=== PATIENT | male | born 1975 | race African-American/Black ===

== ENCOUNTER 2017-10-28 11:59 | Emergency (ER) | payer MEDICAID ==
[~2017-10-28] VITALS: Ht 182.9 cm; Wt 69.0 kg
[~2017-10-28 11:59] MED LIST: CEPH500C5 PO; NYST30CR2 TP
[2017-10-28 12:08] VITALS: BP 123/91
[2017-10-28] MEDS ORDERED: CLOT12CR TOP (12:23)
[2017-10-28] MEDS ORDERED: MYCOL15CR TOP (12:23)
[2017-10-28] MEDS ORDERED: CEPH-571 PO (12:23)
== END 2017-10-28 12:52 | disposition home or self-care (01) ==
LOC: ER 12:01
DX: B35.1 Tinea unguium (principal); L03.032 Cellulitis of left toe; L03.031 Cellulitis of right toe; F12.90 Cannabis use, unspecified, uncomplicated; Z79.2 Long term (current) use of antibiotics
CPT/HCPCS: 99283

== ENCOUNTER 2017-11-10 08:58 | Emergency (ER) | payer MEDICAID ==
[~2017-11-10] VITALS: Ht 182.9 cm; Wt 74.6 kg
[~2017-11-10 08:58] MED LIST changes: +CEPH-571 PO; +CLOT12CR TOP; +MYCOL15CR TOP
[2017-11-10] MEDS ORDERED: fluconazole 150mg tablet PO ONE (09:40)
[2017-11-10] MEDS ORDERED: fluconazole 100mg tablet PO ONE (09:40)
[2017-11-10] MEDS ORDERED: TOLN108P2 TP (09:47)
[2017-11-10] MEDS ORDERED: FLUC200T PO (09:47)
== END 2017-11-10 10:28 | disposition home or self-care (01) ==
LOC: ER 08:59
DX: M79.671 Pain in right foot (principal); M79.672 Pain in left foot; B35.3 Tinea pedis; F12.90 Cannabis use, unspecified, uncomplicated; I10 Essential (primary) hypertension; Z79.899 Other long term (current) drug therapy
CPT/HCPCS: 73630; 99284

== ENCOUNTER 2017-12-03 14:56 | Emergency (ER) | payer MEDICAID ==
[~2017-12-03] VITALS: Ht 182.9 cm; Wt 53.9 kg
[~2017-12-03 14:56] MED LIST changes: -CEPH-571 PO; -CEPH500C5 PO; -CLOT12CR TOP; +FLUC200T PO; +IBUP-1984 PO; -MYCOL15CR TOP; -NYST30CR2 TP; +TOLN108P2 TP
[2017-12-03] MEDS ORDERED: TOLN108P2 TP (15:56)
[2017-12-03] MEDS ORDERED: CEPH-572 PO (15:56)
[2017-12-03] MEDS ORDERED: FLUC200T PO (15:56)
[2017-12-03 16:28] VITALS: BP 137/69
== END 2017-12-03 16:36 | disposition home or self-care (01) ==
LOC: ER 14:58
DX: L08.89 Other specified local infections of the skin and subcutaneous tissue (principal); F17.200 Nicotine dependence, unspecified, uncomplicated; F12.90 Cannabis use, unspecified, uncomplicated; Z79.899 Other long term (current) drug therapy
CPT/HCPCS: 99283

== ENCOUNTER → 2018-01-27 | Emergency (ER) | payer MEDICAID ==
[~2018-01-27] MED LIST changes: -IBUP-1984 PO
== END | disposition left against medical advice (07) ==
LOC: ER 14:22
DX: M79.671 Pain in right foot (principal); Z53.21 Procedure and treatment not carried out due to patient leaving prior to being seen by health care provider

== ENCOUNTER 2018-02-07 22:47 | Emergency (ER) | payer MEDICAID | END 2018-02-07 23:52 | disposition left against medical advice (07) | LOC: ER 22:48 | DX: M79.606 Pain in leg, unspecified (principal); Z53.21 Procedure and treatment not carried out due to patient leaving prior to being seen by health care provider ==

== ENCOUNTER 2018-03-04 14:03 | Emergency (ER) | payer MEDICAID ==
[~2018-03-04] VITALS: Ht 182.9 cm; Wt 71.0 kg
[2018-03-04 14:31] VITALS: BP 115/71
[2018-03-04] MEDS ORDERED: CefTRIAXone 250MG inj IM ONE (16:25)
[2018-03-04] MEDS ORDERED: azithromycin 250mg tablet PO ONE (16:25)
[2018-03-04] MEDS ORDERED: CefTRIAXone 250MG IM Kit w/LIDOcaine IM ONE (16:30)
[2018-03-04 16:37] LABS: CLARITY,URINE SLIGHTLY CLOUDY (Clear); COLOR,URINE YELLOW (Yellow); GLUCOSE, URINE NEGATIVE (Neg); KETONES,URINE NEGATIVE (Neg); LEUKOCYTE ESTERASE ,URINE MODERATE (Neg); NITRITES, URINE NEGATIVE (Neg); OCCULT BLOOD,URINE TRACE-INTACT (Neg); PROTEIN,URINE 30 mg/dl (Neg); UROBILINOGEN,URINE 0.2 E.U/dL (0.2-1.0)
[2018-03-04 16:42] LABS: UA COLLECTION TYPE CLN CATCH MIDSTREAM
[2018-03-04 16:43] LABS: BACTERIA,URINE NONE SEEN /HPF (Neg); MUCUS STRANDS NONE SEEN /LPF (Neg); RBC,URINE 0-2 /HPF (0-2); SQUAMOUS EPITHELIAL CELL,UR NONE SEEN /LPF (FEW); WBC,URINE 50-100 /HPF (0-4)
== END 2018-03-04 16:50 | disposition home or self-care (01) ==
LOC: ER 14:04
DX: A64 Unspecified sexually transmitted disease (principal); R30.0 Dysuria; F12.10 Cannabis abuse, uncomplicated
CPT/HCPCS: 36415; 81001; 87088; 87491; 87591; 96372; 99284; J0696

== ENCOUNTER 2018-06-27 11:30 | Emergency (ER) | payer MEDICAID, OTHER ==
[~2018-06-27] VITALS: Ht 182.9 cm; Wt 76.4 kg
[2018-06-27] MEDS ORDERED: ACET-3067 PO (12:51)
[2018-06-27 13:00] VITALS: BP 122/89
== END 2018-06-27 13:13 | disposition home or self-care (01) ==
LOC: ER 11:30
DX: S80.01XA Contusion of right knee, initial encounter (principal); F12.90 Cannabis use, unspecified, uncomplicated; Z79.899 Other long term (current) drug therapy; W10.8XXA Fall (on) (from) other stairs and steps, initial encounter; Y93.89 Activity, other specified; Y92.89 Other specified places as the place of occurrence of the external cause; Y99.8 Other external cause status
CPT/HCPCS: 73564; 99284

== ENCOUNTER 2018-09-20 00:33 | Emergency (ER) | payer SELFPAY ==
[~2018-09-20] VITALS: Ht 182.9 cm; Wt 72.4 kg
[2018-09-20] MEDS ORDERED: ciprofloxacin 0.3% 2.5ml ophthalmic solution LEFTEYE SCH (02:20)
[2018-09-20] MEDS ORDERED: CefTRIAXone 1000mg IM Kit (w/lidocaine diluent) IM ONE (02:20)
[2018-09-20] MEDS ORDERED: azithromycin 250mg tablet PO ONE (02:20)
[2018-09-20 03:00] VITALS: BP 145/87
== END 2018-09-20 03:01 | disposition home or self-care (01) ==
LOC: ER 00:34
DX: H10.9 Unspecified conjunctivitis (principal); F12.90 Cannabis use, unspecified, uncomplicated; Z79.899 Other long term (current) drug therapy
CPT/HCPCS: 36415; 87491; 87591; 96372; 99283; J0696

== ENCOUNTER 2018-12-20 14:04 | Emergency (ER) | payer SELFPAY ==
[~2018-12-20] VITALS: Ht 182.9 cm; Wt 77.0 kg
[2018-12-20 14:12] VITALS: BP 135/66
--- NOTE | 2018-12-20 14:50 | NUR ---
PT HERE FOR MEDICAL CLEAREANCE TO GO TO EMPIRE DENIES ANY CONCERN OR QUESTIONS.
--- NOTE | 2018-12-20 14:51 | NUR ---
ASKED PT ABOUT DRUG USE PT REFUSED ASKED WHY HE NEEDED MED CLEAREANCE PT SAID I DO NOT KNOW YET, PER TRIAGE NOTE PT USED METH [place] ND HEROIN 2 DAYS AGO.
== END 2018-12-20 14:53 | disposition home or self-care (01) ==
LOC: ER 14:05
DX: F19.10 Other psychoactive substance abuse, uncomplicated (principal); F10.10 Alcohol abuse, uncomplicated; F12.90 Cannabis use, unspecified, uncomplicated; F15.90 Other stimulant use, unspecified, uncomplicated; F11.90 Opioid use, unspecified, uncomplicated; F14.90 Cocaine use, unspecified, uncomplicated; Z87.891 Personal history of nicotine dependence; Z79.899 Other long term (current) drug therapy; Y90.9 Presence of alcohol in blood, level not specified
CPT/HCPCS: 99281

== ENCOUNTER 2019-01-08 02:56 | Emergency (ER) | payer OTHER ==
[~2019-01-08] VITALS: Ht 182.9 cm; Wt 75.9 kg
[2019-01-08 03:00] VITALS: BP 122/85
== END 2019-01-08 03:41 | disposition home or self-care (01) ==
LOC: ER 02:58
DX: L98.8 Other specified disorders of the skin and subcutaneous tissue (principal); H57.12 Ocular pain, left eye; F12.90 Cannabis use, unspecified, uncomplicated; F15.90 Other stimulant use, unspecified, uncomplicated; F14.90 Cocaine use, unspecified, uncomplicated; F11.90 Opioid use, unspecified, uncomplicated; Z79.899 Other long term (current) drug therapy
CPT/HCPCS: 99281

== ENCOUNTER 2019-02-12 03:54 | Emergency (ER) | payer MEDICAID, OTHER ==
[~2019-02-12] VITALS: Ht 182.9 cm; Wt 78.2 kg
[2019-02-12 04:49] LABS: BASOPHILS # (AUTO) 0.1 X10'3 (0-0.2); BASOPHILS % (AUTO) 0.4 % (0-1); EOSINOPHILS # (AUTO) 0.2 X10'3 (0-0.9); EOSINOPHILS % (AUTO) 1.6 % (0-6); HEMATOCRIT 32.5 % (42.0-52.0); HEMOGLOBIN 10.9 g/dl (14.0-17.9); LYMPHOCYTES # (AUTO) 2.5 X10'3 (1.1-4.8); LYMPHOCYTES % (AUTO) 16.5 % (21-51); MEAN CORPUSCULAR HEMOGLOBIN 31.2 PG (27.0-31.0); MEAN CORPUSCULAR HGB CONC 33.6 g/dL (33.0-36.5); MEAN CORPUSCULAR VOLUME 92.9 FL (78-98); MEAN PLATELET VOLUME 6.8 FL (7.4-10.4); MONOCYTES # (AUTO) 1.5 X10'3 (0-0.9); MONOCYTES % (AUTO) 9.9 % (2-12); NEUTROPHILS # (AUTO) 10.9 X10'3 (1.8-7.7); NEUTROPHILS % (AUTO) 71.6 % (42-75); PLATELET COUNT 325 X10'3 (140-440); RED CELL DISTRIBUTION WIDTH 13.2 % (11.5-14.5); WHITE BLOOD COUNT 15.2 X10'3 (4.5-11.0)
[2019-02-12 05:05] LABS: ALANINE AMINOTRANSFERASE 22 U/L (12-78); ALBUMIN/GLOBULIN RATIO 0.7 (1.1-1.5); ALKALINE PHOSPHATASE 91 IU/L (46-116); ANION GAP 12 (8-16); ASPARTATE AMINO TRANSFERASE 21 U/L (10-37); BILIRUBIN,TOTAL 0.3 MG/DL (0.1-1.0); BLOOD UREA NITROGEN 10 MG/DL (7-18); BUN/CREATININE RATIO 9.2 (5.4-32.0); CALCIUM 8.2 MG/DL (8.5-10.1); CHLORIDE 98 MMOL/L (99-107); CREATININE 1.09 MG/DL (0.60-1.10); GLUCOSE 155 MG/DL (70-104); SODIUM 135 MMOL/L (135-145); TOTAL CARBON DIOXIDE 24.7 MMOL/L (24-32); TOTAL PROTEIN 7.5 G/DL (6.4-8.2); eGFR 89 ML/MIN
[2019-02-12 05:11] LABS: POTASSIUM 2.7 MMOL/L (3.5-5.1)
[2019-02-12] MEDS ORDERED: potassium Cl 20 mEq SR tablet PO STA (05:11)
[2019-02-12] MEDS ORDERED: AMOX-422 PO (05:29)
[2019-02-12 05:52] VITALS: BP 115/57
[2019-02-13] MEDS ORDERED: GUAI120015 PO (10:09)
[2019-02-13] MEDS ORDERED: PRED20TA PO (10:09)
[2019-02-13] MEDS ORDERED: ALBU6.7H9 INH (10:09)
== END 2019-02-12 05:53 | disposition home or self-care (01) ==
LOC: ER 03:55
DX: J18.1 Lobar pneumonia, unspecified organism (principal); E87.6 Hypokalemia; F10.10 Alcohol abuse, uncomplicated; F12.90 Cannabis use, unspecified, uncomplicated; F15.90 Other stimulant use, unspecified, uncomplicated; F11.90 Opioid use, unspecified, uncomplicated; F14.90 Cocaine use, unspecified, uncomplicated; Z79.899 Other long term (current) drug therapy; Y90.9 Presence of alcohol in blood, level not specified
CPT/HCPCS: 36415; 71045; 80053; 83880; 84484; 85025; 93005; 99284

== ENCOUNTER 2019-02-13 07:35 | Emergency (ER) | payer MEDICAID, OTHER ==
[~2019-02-13] VITALS: Ht 182.9 cm; Wt 78.2 kg
[~2019-02-13 07:35] MED LIST changes: +AMOX-422 PO
[2019-02-13] MEDS ORDERED: acetaminophen 325mg tablet PO STA (07:56)
[2019-02-13] MEDS ORDERED: normal saline 1000ML IV soln IV ONE (08:00)
[2019-02-13] MEDS ORDERED: CefTRIAXone 2gm/D5W 50ml 50 ML IV ONE (08:00)
[2019-02-13 08:44] LABS: BASOPHILS # (AUTO) 0.1 X10'3 (0-0.2); BASOPHILS % (AUTO) 0.5 % (0-1); EOSINOPHILS # (AUTO) 0.5 X10'3 (0-0.9); EOSINOPHILS % (AUTO) 3.2 % (0-6); HEMATOCRIT 34.2 % (42.0-52.0); HEMOGLOBIN 11.4 g/dl (14.0-17.9); LYMPHOCYTES # (AUTO) 2.4 X10'3 (1.1-4.8); LYMPHOCYTES % (AUTO) 15.4 % (21-51); MEAN CORPUSCULAR HGB CONC 33.4 g/dL (33.0-36.5); MEAN CORPUSCULAR VOLUME 92.8 FL (78-98); MEAN PLATELET VOLUME 6.6 FL (7.4-10.4); MONOCYTES # (AUTO) 1.4 X10'3 (0-0.9); MONOCYTES % (AUTO) 9.3 % (2-12); NEUTROPHILS # (AUTO) 11.1 X10'3 (1.8-7.7); NEUTROPHILS % (AUTO) 71.6 % (42-75); PLATELET COUNT 365 X10'3 (140-440); RED BLOOD COUNT 3.68 X10'6 (4.70-6.10); RED CELL DISTRIBUTION WIDTH 13.4 % (11.5-14.5); WHITE BLOOD COUNT 15.5 X10'3 (4.5-11.0)
[2019-02-13 09:00] LABS: ALANINE AMINOTRANSFERASE 29 U/L (12-78); ALBUMIN 3.3 G/DL (3.4-5.0); ALBUMIN/GLOBULIN RATIO 0.7 (1.1-1.5); ALKALINE PHOSPHATASE 93 IU/L (46-116); ANION GAP 10 (8-16); ASPARTATE AMINO TRANSFERASE 23 U/L (10-37); BILIRUBIN,TOTAL 0.3 MG/DL (0.1-1.0); BLOOD UREA NITROGEN 10 MG/DL (7-18); BUN/CREATININE RATIO 11.2 (5.4-32.0); CALCIUM 9.1 MG/DL (8.5-10.1); CHLORIDE 101 MMOL/L (99-107); CREATININE 0.89 MG/DL (0.60-1.10); GLUCOSE 105 MG/DL (70-104); POTASSIUM 3.6 MMOL/L (3.5-5.1); SODIUM 137 MMOL/L (135-145); TOTAL CARBON DIOXIDE 26.3 MMOL/L (24-32); eGFR > 90 ML/MIN
--- NOTE | 2019-02-13 09:15 | NUR ---
CALLED [facility] [phone] PER PT REQUEST, THEY INFORMED ME TO LET PT KNOW TO COME SEE THEM WHEN HE IS DONE
[2019-02-13] MEDS ORDERED: methylPREDNISolone sod succ 125mg/2ml vial IV ONE (09:20)
[2019-02-13] MEDS ORDERED: ipratropium/albuterol 3ml nebule NEB ONE (09:20)
--- NOTE | 2019-02-13 09:55 | NUR ---
CALLED LAB FOR ESTIMATE OF FLU SWAB RESULTS AND INFORMED APPROX 30 MIN, SHERI INFORMED.
[2019-02-13] MEDS ORDERED: ALBU6.7H9 INH (10:09)
[2019-02-13] MEDS ORDERED: PRED20TA PO (10:09)
[2019-02-13] MEDS ORDERED: GUAI120015 PO (10:09)
[2019-02-13 10:24] VITALS: BP 127/70
== END 2019-02-13 10:26 | disposition home or self-care (01) ==
LOC: ER 07:36
DX: J18.9 Pneumonia, unspecified organism (principal); F12.90 Cannabis use, unspecified, uncomplicated; F15.90 Other stimulant use, unspecified, uncomplicated; F14.90 Cocaine use, unspecified, uncomplicated; F11.90 Opioid use, unspecified, uncomplicated; Z79.899 Other long term (current) drug therapy
CPT/HCPCS: 36415; 71045; 80053; 83605; 84145; 85025; 87040; 87502; 87503; 93005; 94640; 94760; 96365; 96375; 99284; J0696; J2930; J7030; J7040

== ENCOUNTER 2019-02-17 06:20 | Emergency (ER) | payer MEDICAID ==
[~2019-02-17] VITALS: Ht 182.9 cm; Wt 68.2 kg
[~2019-02-17 06:20] MED LIST changes: +ALBU6.7H9 INH; +GUAI120015 PO; +PRED20TA PO
[2019-02-17 06:28] VITALS: BP 112/71
[2019-02-17] MEDS ORDERED: ipratropium/albuterol 3ml nebule NEB ONE (06:45)
--- NOTE | 2019-02-17 07:00 | NUR ---
Megan sanabria in [facility] - 02/17/19 at 0701 by BEBE I have reviewed and agree with all medications administered and interventions performed by ANDROID FRAMEWORK DEVELOPER Student(fill in Student's nam)
--- NOTE | 2019-02-17 07:01 | NUR ---
I have reviewed and agree with all medications administered and interventions performed by ELECTRIC RAZOR MECHANIC Student Jessica Lagos.
[2019-02-17] MEDS ORDERED: BENZ-38 PO (07:25)
== END 2019-02-17 07:36 | disposition home or self-care (01) ==
LOC: ER 06:21
DX: J18.9 Pneumonia, unspecified organism (principal); F12.90 Cannabis use, unspecified, uncomplicated; F15.90 Other stimulant use, unspecified, uncomplicated; F14.90 Cocaine use, unspecified, uncomplicated; F11.90 Opioid use, unspecified, uncomplicated; Z79.899 Other long term (current) drug therapy
CPT/HCPCS: 94640; 94760; 99283

== ENCOUNTER 2019-03-21 13:49 | Emergency (ER) | payer MEDICAID ==
[~2019-03-21] VITALS: Ht 182.9 cm; Wt 77.3 kg
[~2019-03-21 13:49] MED LIST changes: -AMOX-422 PO; -PRED20TA PO
[2019-03-21 14:48] LABS: BASOPHILS # (AUTO) 0.1 X10'3 (0-0.2); BASOPHILS % (AUTO) 0.8 % (0-1); EOSINOPHILS # (AUTO) 0.4 X10'3 (0-0.9); EOSINOPHILS % (AUTO) 4.2 % (0-6); HEMATOCRIT 38.4 % (42.0-52.0); HEMOGLOBIN 13.1 g/dl (14.0-17.9); LYMPHOCYTES # (AUTO) 3.8 X10'3 (1.1-4.8); LYMPHOCYTES % (AUTO) 36.2 % (21-51); MEAN CORPUSCULAR HEMOGLOBIN 31.8 PG (27.0-31.0); MEAN CORPUSCULAR VOLUME 93.6 FL (78-98); MEAN PLATELET VOLUME 6.5 FL (7.4-10.4); MONOCYTES # (AUTO) 0.7 X10'3 (0-0.9); NEUTROPHILS # (AUTO) 5.4 X10'3 (1.8-7.7); NEUTROPHILS % (AUTO) 51.8 % (42-75); PLATELET COUNT 305 X10'3 (140-440); RED CELL DISTRIBUTION WIDTH 14.2 % (11.5-14.5); WHITE BLOOD COUNT 10.5 X10'3 (4.5-11.0)
[2019-03-21 14:49] LABS: CLARITY,URINE SLIGHTLY CLOUDY (Clear); COLOR,URINE YELLOW (Yellow); GLUCOSE, URINE NEGATIVE (Neg); KETONES,URINE NEGATIVE (Neg); LEUKOCYTE ESTERASE ,URINE NEGATIVE (Neg); NITRITES, URINE NEGATIVE (Neg); OCCULT BLOOD,URINE TRACE-LYSED (Neg); PH,URINE 6.5 (4.8-8.0); PROTEIN,URINE 30 mg/dl (Neg); UROBILINOGEN,URINE 0.2 E.U/dL (0.2-1.0)
[2019-03-21 14:51] LABS: UA COLLECTION TYPE CLN CATCH MIDSTREAM
[2019-03-21 14:57] LABS: AMORPHOUS URATES 2+; BACTERIA,URINE FEW /HPF (Neg); MUCUS STRANDS FEW /LPF (Neg); WBC,URINE 0-4 /HPF (0-4)
[2019-03-21 14:58] LABS: SQUAMOUS EPITHELIAL CELL,UR FEW /LPF (FEW)
[2019-03-21 15:07] LABS: ALANINE AMINOTRANSFERASE 25 U/L (12-78); ALBUMIN 3.7 G/DL (3.4-5.0); ALBUMIN/GLOBULIN RATIO 0.9 (1.1-1.5); ALKALINE PHOSPHATASE 86 IU/L (46-116); ANION GAP 9 (8-16); ASPARTATE AMINO TRANSFERASE 24 U/L (10-37); BILIRUBIN,TOTAL 0.3 MG/DL (0.1-1.0); BLOOD UREA NITROGEN 13 MG/DL (7-18); BUN/CREATININE RATIO 11.4 (5.4-32.0); CALCIUM 9.1 MG/DL (8.5-10.1); CHLORIDE 104 MMOL/L (99-107); CREATININE 1.14 MG/DL (0.60-1.10); GLUCOSE 127 MG/DL (70-104); LIPASE 86 U/L (73-393); SODIUM 141 MMOL/L (135-145); TOTAL CARBON DIOXIDE 27.8 MMOL/L (24-32); TOTAL PROTEIN 7.7 G/DL (6.4-8.2); eGFR 85 ML/MIN
[2019-03-21] MEDS ORDERED: predniSONE 20 mg tablet PO ONE (15:40)
[2019-03-21] MEDS ORDERED: albuterol 2.5 MG/3 ML nebule NEB ONE (15:40)
[2019-03-21] MEDS ORDERED: ipratropium/albuterol 3ml nebule NEB ONE (15:40)
[2019-03-21] MEDS ORDERED: PRED20TA PO (16:21)
[2019-03-21] MEDS ORDERED: ALBU18HF2 INH (16:21)
[2019-03-21 17:01] VITALS: BP 133/79
== END 2019-03-21 17:03 | disposition home or self-care (01) ==
LOC: ER 13:50
DX: J45.909 Unspecified asthma, uncomplicated (principal); F17.200 Nicotine dependence, unspecified, uncomplicated; F10.99 Alcohol use, unspecified with unspecified alcohol-induced disorder; F12.90 Cannabis use, unspecified, uncomplicated; Z79.899 Other long term (current) drug therapy; Y90.9 Presence of alcohol in blood, level not specified
CPT/HCPCS: 36415; 71045; 80053; 81001; 83690; 85025; 85610; 94640; 94760; 99284; J7512

== ENCOUNTER 2019-03-29 07:35 | Emergency (ER) | payer MEDICAID ==
[~2019-03-29] VITALS: Ht 182.9 cm; Wt 80.9 kg
[~2019-03-29 07:35] MED LIST changes: +ALBU18HF2 INH
[2019-03-29 08:12] VITALS: BP 131/82
== END 2019-03-29 09:06 | disposition home or self-care (01) ==
LOC: ER 07:36
DX: B34.9 Viral infection, unspecified (principal); R05 Cough; R09.89 Other specified symptoms and signs involving the circulatory and respiratory systems; R06.02 Shortness of breath; J45.909 Unspecified asthma, uncomplicated; F10.99 Alcohol use, unspecified with unspecified alcohol-induced disorder; F12.90 Cannabis use, unspecified, uncomplicated; Z87.891 Personal history of nicotine dependence; Z79.899 Other long term (current) drug therapy; Y90.9 Presence of alcohol in blood, level not specified
CPT/HCPCS: 99283

== ENCOUNTER 2019-11-26 20:11 | Emergency (ER) | payer MEDICAID ==
[~2019-11-26] VITALS: Ht 182.9 cm; Wt 80.0 kg
[2019-11-26 20:14] VITALS: BP 141/84
[2019-11-26] MEDS ORDERED: CefTRIAXone 250MG IM Kit w/LIDOcaine IM ONE (20:30)
[2019-11-26] MEDS ORDERED: azithromycin 250mg tablet PO ONE (20:30)
== END 2019-11-26 20:43 | disposition home or self-care (01) ==
LOC: ER 20:11
DX: Z20.2 Contact with and (suspected) exposure to infections with a predominantly sexual mode of transmission (principal); R30.0 Dysuria; J45.909 Unspecified asthma, uncomplicated; F12.90 Cannabis use, unspecified, uncomplicated; Z87.01 Personal history of pneumonia (recurrent); Z72.89 Other problems related to lifestyle; Z79.2 Long term (current) use of antibiotics; Z79.899 Other long term (current) drug therapy
CPT/HCPCS: 36415; 87491; 87591; 96372; 99283; J0696

== ENCOUNTER 2020-02-02 20:27 | Emergency (ER) | payer MEDICAID ==
[~2020-02-02] VITALS: Ht 185.4 cm; Wt 80.0 kg
[2020-02-02] MEDS ORDERED: azithromycin 250mg tablet PO ONE (21:00)
[2020-02-02] MEDS ORDERED: CefTRIAXone 250MG IM Kit w/LIDOcaine IM ONE (21:00)
[2020-02-02 21:35] LABS: CLARITY,URINE CLEAR (Clear); COLOR,URINE YELLOW (Yellow); GLUCOSE, URINE NEGATIVE (Neg); KETONES,URINE NEGATIVE (Neg); LEUKOCYTE ESTERASE ,URINE NEGATIVE (Neg); NITRITES, URINE NEGATIVE (Neg); OCCULT BLOOD,URINE TRACE-INTACT (Neg); PH,URINE 6.5 (4.8-8.0); PROTEIN,URINE TRACE mg/dl (Neg)
[2020-02-02 21:45] LABS: UA COLLECTION TYPE CLN CATCH MIDSTREAM
[2020-02-02 21:46] LABS: BACTERIA,URINE NONE SEEN /HPF (Neg); RBC,URINE 0-2 /HPF (0-2); SQUAMOUS EPITHELIAL CELL,UR FEW /LPF (FEW); WBC,URINE NONE SEEN /HPF (0-4)
[2020-02-02 21:59] VITALS: BP 139/89
== END 2020-02-02 22:01 | disposition home or self-care (01) ==
LOC: ER 20:28
DX: A54.89 Other gonococcal infections (principal); J45.909 Unspecified asthma, uncomplicated; F12.90 Cannabis use, unspecified, uncomplicated; Z72.89 Other problems related to lifestyle; Z87.01 Personal history of pneumonia (recurrent); Z79.2 Long term (current) use of antibiotics; Z79.899 Other long term (current) drug therapy
CPT/HCPCS: 36415; 81001; 87491; 87591; 96372; 99283; J0696

== ENCOUNTER 2020-03-22 10:12 | Emergency (ER) | payer MEDICAID ==
[~2020-03-22] VITALS: Ht 182.9 cm; Wt 77.3 kg
[2020-03-22 10:15] VITALS: BP 165/113
[2020-03-22] MEDS ORDERED: MUPI22OI30 TOP (10:42)
== END 2020-03-22 10:58 | disposition home or self-care (01) ==
LOC: ER 10:13
DX: S30.812A Abrasion of penis, initial encounter (principal); X58.XXXA Exposure to other specified factors, initial encounter; Y93.89 Activity, other specified; Y92.89 Other specified places as the place of occurrence of the external cause; Y99.8 Other external cause status; J45.909 Unspecified asthma, uncomplicated; F12.10 Cannabis abuse, uncomplicated; Z79.899 Other long term (current) drug therapy
CPT/HCPCS: 99283

== ENCOUNTER 2020-05-29 13:51 | Inpatient (IN) | payer MEDICAID ==
[~2020-05-29] VITALS: Ht 182.9 cm; Wt 80.0 kg
[2020-05-29] MEDS ORDERED: normal saline 1000ML IV soln IV ONE (14:35)
[2020-05-29] MEDS ORDERED: acetaminophen 325mg tablet PO STA (14:35)
[2020-05-29] MEDS ORDERED: CefTRIAXone 2gm/D5W 50ml BAG 50 ML IV ONE (14:35)
[2020-05-29 15:29] LABS: BASOPHILS % (AUTO) 0.1 % (0-1); EOSINOPHILS # (AUTO) 0.1 X10'3 (0-0.9); EOSINOPHILS % (AUTO) 0.4 % (0-6); HEMATOCRIT 35.7 % (42.0-52.0); HEMOGLOBIN 12.1 g/dl (14.0-17.9); LYMPHOCYTES % (AUTO) 9.1 % (21-51); MEAN CORPUSCULAR HEMOGLOBIN 30.7 PG (27.0-31.0); MEAN CORPUSCULAR HGB CONC 33.9 g/dL (33.0-36.5); MEAN CORPUSCULAR VOLUME 90.5 FL (78-98); MEAN PLATELET VOLUME 7.1 FL (7.4-10.4); MONOCYTES # (AUTO) 1.6 X10'3 (0-0.9); MONOCYTES % (AUTO) 7.5 % (2-12); NEUTROPHILS % (AUTO) 82.9 % (42-75); PLATELET COUNT 331 X10'3 (140-440); RED BLOOD COUNT 3.94 X10'6 (4.70-6.10); RED CELL DISTRIBUTION WIDTH 13.4 % (11.5-14.5); WHITE BLOOD COUNT 21.7 X10'3 (4.5-11.0)
[2020-05-29 15:56] LABS: ALANINE AMINOTRANSFERASE 23 U/L (12-78); ALBUMIN 2.5 G/DL (3.4-5.0); ALBUMIN/GLOBULIN RATIO 0.4 (1.1-1.5); ALKALINE PHOSPHATASE 123 IU/L (46-116); ANION GAP 10 (8-16); ASPARTATE AMINO TRANSFERASE 33 U/L (10-37); BILIRUBIN,TOTAL 0.8 MG/DL (0.1-1.0); BLOOD UREA NITROGEN 16 MG/DL (7-18); BUN/CREATININE RATIO 13.4 (5.4-32.0); CALCIUM 8.8 MG/DL (8.5-10.1); CHLORIDE 88 MMOL/L (99-107); CREATININE 1.19 MG/DL (0.60-1.10); GLUCOSE 94 MG/DL (70-104); SODIUM 127 MMOL/L (135-145); TOTAL CARBON DIOXIDE 29.3 MMOL/L (24-32); TOTAL PROTEIN 8.5 G/DL (6.4-8.2); eGFR 80 ML/MIN
[2020-05-29 16:01] LABS: POTASSIUM 3.4 MMOL/L (3.5-5.1)
[2020-05-29] MEDS ORDERED: dexamethasone sod phosphate 10mg/ml inj IV STA (16:02)
[2020-05-29] MEDS ORDERED: azithromycin/NS 500mg/250ml 250 ML IV ONE (16:05)
[2020-05-29] MEDS ORDERED: ondansetron/PF 4mg/2ml inj IV ONE (16:15)
[2020-05-29] MEDS ORDERED: normal saline 1000ML IV soln IVB ONE (16:15)
[2020-05-29] MEDS ORDERED: NO HOME MEDS (16:24)
[2020-05-29] MEDS ORDERED: morphine 4 MG/ML inj SYRINge IV ONE (16:35)
[2020-05-29] MEDS ORDERED: ipratropium/albuterol 3ml nebule NEB ONE (16:35)
[2020-05-29 16:50] LABS: FERRITIN 384 NG/ML (26-388)
[2020-05-29] MEDS ORDERED: vancomycin/NS 1 GM ADD-VANTAGE 250 ML IV ONE (16:50)
[2020-05-29 16:54] LABS: LACTATE DEHYDROGENASE 269 U/L (85-227)
[2020-05-29 17:00] LABS: CLARITY,URINE CLEAR (Clear); COLOR,URINE YELLOW (Yellow); GLUCOSE, URINE NEGATIVE (Neg); KETONES,URINE TRACE mg/dl (Neg); LEUKOCYTE ESTERASE ,URINE NEGATIVE (Neg); NITRITES, URINE NEGATIVE (Neg); OCCULT BLOOD,URINE MODERATE (Neg); PROTEIN,URINE 100 mg/dl (Neg)
[2020-05-29 17:07] LABS: C-REACTIVE PROTEIN 30.75 MG/DL (0.0-0.5)
[2020-05-29 17:12] LABS: URINE AMPHETAMINE SCREEN POSITIVE (Neg); URINE BARBITUATE SCREEN NEGATIVE (Neg); URINE BENZODIAZEPINES SCREEN NEGATIVE (Neg); URINE CANNABINOID SCREEN POSITIVE (Neg); URINE COCAINE SCREEN NEGATIVE (Neg); URINE METHADONE SCREEN NEGATIVE (Neg); URINE OPIATE SCREEN POSITIVE (Neg); URINE PHENCYCLIDINE SCREEN NEGATIVE (Neg)
[2020-05-29 17:27] LABS: UA COLLECTION TYPE CLN CATCH MIDSTREAM
[2020-05-29 17:28] LABS: WBC,URINE 0-4 /HPF (0-4)
[2020-05-29 17:30] LABS: BACTERIA,URINE FEW /HPF (Neg); SQUAMOUS EPITHELIAL CELL,UR FEW /LPF (FEW); TRANSITIONAL EPI CELLS,URINE FEW /HPF
--- NOTE | 2020-05-29 18:30 | NUR ---
ASSUMED CARE OF PT AFTER RECEIVING REPORT. PT RESTING ON GURNEY IN NO APPARENT DISTRESS.
[2020-05-29] MEDS ORDERED: acetaminophen 325mg tablet PO PRN ×2 (19:25)
[2020-05-29] MEDS ORDERED: magnesium 4gm in 100ml NS 100 ML IV PRN (19:25)
[2020-05-29] MEDS ORDERED: ipratropium/albuterol 3ml nebule NEB PRN ×2 (19:25)
[2020-05-29] MEDS ORDERED: potassium Cl 40MEQ/1/2NS 520ml 520 ML IV PRN ×2 (19:25)
[2020-05-29] MEDS ORDERED: ondansetron/PF 4mg/2ml inj IV PRN (19:25)
[2020-05-29] MEDS ORDERED: magnesium Cl slow-release 64mg tablet PO PRN (19:25)
[2020-05-29] MEDS ORDERED: magnesium 2GM in 50ml NS 50 ML IV PRN (19:25)
[2020-05-29] MEDS: normal saline 1000ml 1,000 ML IV SCH (19:25)
[2020-05-29] MEDS ORDERED: potassium Cl 20 mEq SR tablet PO PRN ×2 (19:25)
--- NOTE | 2020-05-29 19:30 | NUR ---
NO CHANGE IN CONDITION. CON TO AWAIT INPT BED ASSIGNMENT.
[2020-05-29] MEDS: K and/or MAG REPLACEMENT MC SCH (20:00)
[2020-05-29] MEDS: docusate sod 100mg capsule PO SCH (20:00)
--- NOTE | 2020-05-29 20:30 | NUR ---
PT PROVIDED FOOD. REPOSITIONED FOR COMFORT.
--- NOTE | 2020-05-29 21:56 | NUR ---
PT RESTING WITH EYES CLOSED, DENIES ANY COMPLAINTS AT THIS TIME.
--- NOTE | 2020-05-29 23:30 | NUR ---
Pt con to rest quietly with eyes closed. Denies any complaints at this time. Rouses easily to verbal stimuli.
--- NOTE | 2020-05-30 01:16 | NUR ---
No change, will con to monitor.
--- NOTE | 2020-05-30 02:30 | NUR ---
Pt repositioned for comfort and provided an extra blanket. Denies any other needs at this time. Resting with lights turned down and eyes closed.
--- NOTE | 2020-05-30 03:50 | NUR ---
Pt c/o side pain, medicated per prn orders.
--- NOTE | 2020-05-30 05:00 | NUR ---
PT CON TO REST WITH EYES CLOSED, IN NO APPARENT DISTRESS.
--- NOTE | 2020-05-30 07:19 | NUR ---
Patient in room ED 1. I have received report from ERVIN Mancilla and had the opportunity to ask questions and assume patient care.
[2020-05-30] MEDS: K and/or MAG REPLACEMENT MC SCH ×2 (08:00→20:00)
[2020-05-30] MEDS: normal saline 1000ml 1,000 ML IV SCH ×2 (08:06→20:25)
[2020-05-30] MEDS: CefTRIAXone/D5W-Rocephin 1gm 50 ML IV SCH (08:11)
[2020-05-30] MEDS: docusate sod 100mg capsule PO SCH ×2 (08:15→20:22)
[2020-05-30 09:12] LABS: ALBUMIN 1.8 G/DL (3.4-5.0); ANION GAP 6 (8-16); BLOOD UREA NITROGEN 19 MG/DL (7-18); CALCIUM 8.3 MG/DL (8.5-10.1); CHLORIDE 101 MMOL/L (99-107); GLUCOSE 126 MG/DL (70-104); MAGNESIUM 2.5 MG/DL (1.5-2.4); POTASSIUM 4.2 MMOL/L (3.5-5.1); SODIUM 136 MMOL/L (135-145); TOTAL CARBON DIOXIDE 29.5 MMOL/L (24-32); eGFR > 90 ML/MIN
[2020-05-30] MEDS: azithromycin/NS 500mg/250ml 250 ML IV SCH (09:12)
[2020-05-30 09:19] LABS: BASOPHILS % (AUTO) 0.2 % (0-1); EOSINOPHILS % (AUTO) 0 % (0-6); HEMATOCRIT 30.9 % (42.0-52.0); HEMOGLOBIN 10.4 g/dl (14.0-17.9); LYMPHOCYTES # (AUTO) 1.9 X10'3 (1.1-4.8); LYMPHOCYTES % (AUTO) 9.8 % (21-51); MEAN CORPUSCULAR HGB CONC 33.5 g/dL (33.0-36.5); MEAN CORPUSCULAR VOLUME 92.5 FL (78-98); MEAN PLATELET VOLUME 7.4 FL (7.4-10.4); MONOCYTES # (AUTO) 1.8 X10'3 (0-0.9); MONOCYTES % (AUTO) 9.3 % (2-12); NEUTROPHILS # (AUTO) 15.8 X10'3 (1.8-7.7); NEUTROPHILS % (AUTO) 80.7 % (42-75); PLATELET COUNT 333 X10'3 (140-440); RED BLOOD COUNT 3.34 X10'6 (4.70-6.10); RED CELL DISTRIBUTION WIDTH 13.5 % (11.5-14.5); WHITE BLOOD COUNT 19.6 X10'3 (4.5-11.0)
[2020-05-30 11:11] VITALS: BP 103/68
--- NOTE | 2020-05-30 16:19 | NUR ---
Problems reprioritized. Patient report given, questions answered & plan of care reviewed with Surgical nurse ERVIN Mims.
--- NOTE | 2020-05-30 16:31 | NUR ---
RECEIVED REPORT FROM TYRA MUELLER. PATIENT COMING SOON
[2020-05-30 16:47] VITALS: BP 112/60
--- NOTE | 2020-05-30 16:47 | NUR ---
PATIENT CAME TO FLOOR
--- NOTE | 2020-05-30 17:47 | NUR ---
POSITIVE BL CULTURE GRAM POSITIVE COCCI IN PAIRS IN AEROBIC BOTTLE DRAWN AT 05-29-20 AT 1516 FROM IV START.
[2020-05-30 18:00] VITALS: BP 102/60
--- NOTE | 2020-05-30 18:16 | NUR ---
Problems reprioritized. Patient report given, questions answered & plan of care reviewed with prudence rn.
--- NOTE | 2020-05-30 18:42 | NUR ---
Patient in room [facility]. I have received report from JOSH MUELLER and had the opportunity to ask questions and assume patient care.
[2020-05-30] MEDS ORDERED: ketorolac trometh. 30mg/ml inj. IV ONE (20:10)
[2020-05-30] MEDS: lactobacillus rhamnosus 10,000 MMU CELLS/CAPSULE PO SCH (20:22)
[2020-05-31] VITALS: BP 98/64
[2020-05-31] MEDS: normal saline 1000ml 1,000 ML IV SCH ×2 (01:25→06:03)
[2020-05-31] MEDS: ketorolac trometh. 30mg/ml inj. IV SCH ×2 (02:42→07:57)
[2020-05-31 06:04] LABS: HEMOGLOBIN 10.4 g/dl (14.0-17.9); PLATELET COUNT 337 X10'3 (140-440)
[2020-05-31 06:07] LABS: BASOPHILS # (AUTO) 0.1 X10'3 (0-0.2); BASOPHILS % (AUTO) 0.3 % (0-1); EOSINOPHILS % (AUTO) 0.1 % (0-6); HEMATOCRIT 31.3 % (42.0-52.0); LYMPHOCYTES # (AUTO) 4.2 X10'3 (1.1-4.8); LYMPHOCYTES % (AUTO) 19.6 % (21-51); MEAN CORPUSCULAR HEMOGLOBIN 30.5 PG (27.0-31.0); MEAN CORPUSCULAR HGB CONC 33.4 g/dL (33.0-36.5); MEAN CORPUSCULAR VOLUME 91.5 FL (78-98); MEAN PLATELET VOLUME 7.5 FL (7.4-10.4); MONOCYTES # (AUTO) 1.9 X10'3 (0-0.9); MONOCYTES % (AUTO) 9.1 % (2-12); NEUTROPHILS # (AUTO) 15.1 X10'3 (1.8-7.7); NEUTROPHILS % (AUTO) 70.9 % (42-75); RED BLOOD COUNT 3.42 X10'6 (4.70-6.10); RED CELL DISTRIBUTION WIDTH 13.4 % (11.5-14.5); WHITE BLOOD COUNT 21.3 X10'3 (4.5-11.0)
--- NOTE | 2020-05-31 06:12 | NUR ---
Problems reprioritized. Patient report given, questions answered & plan of care reviewed with AKASH MUELLER.
--- NOTE | 2020-05-31 06:17 | NUR ---
Patient in room [facility]. I have received report from ERVIN Miller and had the opportunity to ask questions and assume patient care.
[2020-05-31 06:20] LABS: ALBUMIN 1.7 G/DL (3.4-5.0); ANION GAP 7 (8-16); BLOOD UREA NITROGEN 25 MG/DL (7-18); BUN/CREATININE RATIO 27.5 (5.4-32.0); CALCIUM 8.4 MG/DL (8.5-10.1); CHLORIDE 102 MMOL/L (99-107); CREATININE 0.91 MG/DL (0.60-1.10); GLUCOSE 85 MG/DL (70-104); MAGNESIUM 2.2 MG/DL (1.5-2.4); POTASSIUM 3.7 MMOL/L (3.5-5.1); SODIUM 135 MMOL/L (135-145); TOTAL CARBON DIOXIDE 25.6 MMOL/L (24-32); eGFR > 90 ML/MIN
[2020-05-31 06:51] LABS: PLATELET ESTIMATE NORMAL; TOTAL CELLS COUNTED 100; TOXIC GRANULATION 3+
[2020-05-31 06:52] LABS: BURR CELLS FEW
[2020-05-31 07:00] VITALS: BP 128/85
[2020-05-31] MEDS: lactobacillus rhamnosus 10,000 MMU CELLS/CAPSULE PO SCH (07:56)
[2020-05-31] MEDS: docusate sod 100mg capsule PO SCH (07:56)
[2020-05-31] MEDS: CefTRIAXone/D5W-Rocephin 1gm 50 ML IV SCH (07:57)
[2020-05-31] MEDS: K and/or MAG REPLACEMENT MC SCH (08:00)
[2020-05-31] MEDS: azithromycin/NS 500mg/250ml 250 ML IV SCH (09:14)
--- NOTE | 2020-05-31 10:30 | NUR ---
Pt requesting paperwork to sign himself out. Explained to pt that he currently has an infection in his lung and needs antibiotics. Also explained to pt that if he leaves AMA that he will not receive antibiotics that he needs. Pt states understanding and a continual desire to sign himself out of the hospital without waiting to see the hospitalist. Dr Terry lei. IV DC'd, cannula intact. AMA paperwork provided and pt signed.
--- NOTE | 2020-05-31 10:51 | NUR ---
Pt requesting copy of AMA paperwork. Provided to pt. No response from hospitalist. Pt escorted self to front lobby.
== END 2020-05-31 10:50 | disposition left against medical advice (07) | DRG 720 ==
LOC: ER 13:52 → ED HOLD 19:23 → PCU 3S 05-30 08:14 → SUR 3N 05-30 17:15
PROVIDERS: ADMIT Internal Medicine; ATTEND Internal Medicine
DX: A41.9 Sepsis, unspecified organism (principal); J18.9 Pneumonia, unspecified organism; Z20.822 Contact with and (suspected) exposure to COVID-19; Z53.29 Procedure and treatment not carried out because of patient's decision for other reasons; E87.1 Hypo-osmolality and hyponatremia; E86.9 Volume depletion, unspecified; E87.6 Hypokalemia; F15.90 Other stimulant use, unspecified, uncomplicated; J45.909 Unspecified asthma, uncomplicated; N17.9 Acute kidney failure, unspecified; F12.90 Cannabis use, unspecified, uncomplicated; Z82.49 Family history of ischemic heart disease and other diseases of the circulatory system
CPT/HCPCS: 36415; 71045; 80048; 80053; 80305; 81001; 82728; 83605; 83615; 83735; 84145; 85007; 85025; 85384; 86140; 87040; 87077; 87081; 87186; 87635; 93005; 94640; 94760; 96365; 96367; 96375; 99291; C9803; G0378; J0456; J0696; J1100; J1885; J2270; J2405; J3370; J7030

== ENCOUNTER 2021-05-12 22:22 | Emergency (ER) | payer MEDICAID ==
[~2021-05-12] VITALS: Ht 182.9 cm; Wt 78.2 kg
[~2021-05-12 22:22] MED LIST changes: -ALBU18HF2 INH; -ALBU6.7H9 INH; -FLUC200T PO; -GUAI120015 PO; +NO HOME MEDS; -TOLN108P2 TP
[2021-05-12 22:49] VITALS: BP 145/90
[2021-05-12] MEDS ORDERED: ketorolac trometh. 30mg/ml inj. IM ONE (23:10)
[2021-05-12] MEDS ORDERED: orphenadrine citrate 60mg/2ml inj. IM ONE (23:10)
[2021-05-12] MEDS ORDERED: CYCL-1 PO (23:16)
[2021-05-12] MEDS ORDERED: IBUP-1984 PO (23:16)
== END 2021-05-12 23:39 | disposition home or self-care (01) ==
LOC: ER 22:22
DX: M54.50 Low back pain, unspecified (principal); M54.2 Cervicalgia; J45.909 Unspecified asthma, uncomplicated; F12.90 Cannabis use, unspecified, uncomplicated; Z87.01 Personal history of pneumonia (recurrent); Z86.19 Personal history of other infectious and parasitic diseases; Z72.89 Other problems related to lifestyle; Z79.899 Other long term (current) drug therapy; V87.7XXA Person injured in collision between other specified motor vehicles (traffic), initial encounter; Y93.89 Activity, other specified; Y92.89 Other specified places as the place of occurrence of the external cause; Y99.8 Other external cause status
CPT/HCPCS: 96372; 99284; J1885; J2360

== ENCOUNTER 2021-06-25 04:53 | Emergency (ER) | payer MEDICAID ==
[~2021-06-25 04:53] MED LIST changes: +CYCL-1 PO
== END 2021-06-25 06:30 | disposition left against medical advice (07) ==
LOC: ER 04:53
DX: Z01.84 Encounter for antibody response examination (principal); Z53.21 Procedure and treatment not carried out due to patient leaving prior to being seen by health care provider

== ENCOUNTER 2022-02-16 15:50 | Emergency (ER) | payer MEDICAID ==
[~2022-02-16] VITALS: Ht 182.9 cm; Wt 78.0 kg
[2022-02-16 16:40] VITALS: BP 111/73
[2022-02-16] MEDS ORDERED: DOXYCYCLINE 100MG CAPSULE PO STA (18:43)
[2022-02-16] MEDS ORDERED: CefTRIAXone 1000mg IM Kit (w/lidocaine diluent) IM ONE (18:45)
[2022-02-16 18:52] LABS: CLARITY,URINE CLOUDY (Clear); COLOR,URINE YELLOW (Yellow); GLUCOSE, URINE NEGATIVE (Neg); KETONES,URINE NEGATIVE (Neg); LEUKOCYTE ESTERASE ,URINE TRACE (Neg); NITRITES, URINE NEGATIVE (Neg); OCCULT BLOOD,URINE SMALL (Neg); PH,URINE 5.5 (4.8-8.0); PROTEIN,URINE 30 mg/dl (Neg); UROBILINOGEN,URINE 0.2 E.U/dL (0.2-1.0)
[2022-02-16] MEDS ORDERED: DOXY-1 PO (19:02)
[2022-02-16 19:04] LABS: UA COLLECTION TYPE NON-SPECIFIED
[2022-02-16 19:05] LABS: RBC,URINE 0-2 /HPF (0-2); WBC,URINE TNTC /HPF (0-4)
[2022-02-16 19:06] LABS: BACTERIA,URINE 1+ /HPF (Neg); CAL OXALATE CRYSTALS FEW /HPF (NEGATIVE); MUCUS STRANDS NONE SEEN /LPF (Neg); SQUAMOUS EPITHELIAL CELL,UR NONE SEEN /LPF (FEW); WBC CLUMPS,URINE FEW /HPF (NEGATIVE)
== END 2022-02-16 19:33 | disposition home or self-care (01) ==
LOC: ER 15:51
DX: Z20.2 Contact with and (suspected) exposure to infections with a predominantly sexual mode of transmission (principal); J45.909 Unspecified asthma, uncomplicated; F12.90 Cannabis use, unspecified, uncomplicated
CPT/HCPCS: 36415; 81001; 87088; 87491; 87591; 96372; 99283; J0696

== ENCOUNTER 2022-05-01 02:49 | Emergency (ER) | payer MEDICAID ==
[~2022-05-01] VITALS: Ht 182.9 cm; Wt 73.1 kg
[2022-05-01 03:31] VITALS: BP 138/84
[2022-05-02] MEDS ORDERED: DOXY100C76 PO (23:58)
== END 2022-05-01 07:23 | disposition left against medical advice (07) ==
LOC: ER 02:49
DX: B99.9 Unspecified infectious disease (principal); Z53.21 Procedure and treatment not carried out due to patient leaving prior to being seen by health care provider

== ENCOUNTER 2022-05-02 22:02 | Emergency (ER) | payer MEDICAID ==
[~2022-05-02] VITALS: Ht 182.9 cm; Wt 80.0 kg
[2022-05-02 23:35] LABS: CLARITY,URINE SLIGHTLY CLOUDY (Clear); COLOR,URINE YELLOW (Yellow); GLUCOSE, URINE NEGATIVE (Neg); KETONES,URINE NEGATIVE (Neg); LEUKOCYTE ESTERASE ,URINE TRACE (Neg); NITRITES, URINE NEGATIVE (Neg); OCCULT BLOOD,URINE SMALL (Neg); PH,URINE 5.5 (4.8-8.0); PROTEIN,URINE TRACE mg/dl (Neg); UROBILINOGEN,URINE 0.2 E.U/dL (0.2-1.0)
[2022-05-02 23:41] LABS: CAL OXALATE CRYSTALS 2+ /HPF (NEGATIVE); RBC,URINE NONE SEEN /HPF (0-2); SQUAMOUS EPITHELIAL CELL,UR FEW /LPF (FEW); UA COLLECTION TYPE VOIDED
[2022-05-02 23:42] LABS: BACTERIA,URINE 1+ /HPF (Neg); MUCUS STRANDS FEW /LPF (Neg)
[2022-05-02] MEDS ORDERED: DOXY100C76 PO (23:58)
[2022-05-03] MEDS ORDERED: CefTRIAXone 500MG IM Kit w/LIDOcaine IM ONE
[2022-05-03 00:08] VITALS: BP 138/76
== END 2022-05-03 00:09 | disposition home or self-care (01) ==
LOC: ER 22:02
DX: A56.01 Chlamydial cystitis and urethritis (principal); J45.909 Unspecified asthma, uncomplicated; F17.200 Nicotine dependence, unspecified, uncomplicated
CPT/HCPCS: 36415; 81001; 87088; 87491; 87591; 96372; 99283; J0696

== ENCOUNTER 2022-08-07 01:16 | Emergency (ER) | payer MEDICAID | END 2022-08-07 02:23 | disposition left against medical advice (07) | LOC: ER 01:16 | DX: M54.9 Dorsalgia, unspecified (principal); Z53.21 Procedure and treatment not carried out due to patient leaving prior to being seen by health care provider ==

== ENCOUNTER 2022-09-03 01:29 | Emergency (ER) | payer MEDICAID ==
[~2022-09-03] VITALS: Ht 185.4 cm; Wt 78.6 kg
[2022-09-03 01:46] VITALS: BP 161/102
[2022-09-03] MEDS ORDERED: CIPR10DR RIGHT EAR (01:59)
== END 2022-09-03 02:14 | disposition home or self-care (01) ==
LOC: ER 01:29
DX: H60.501 Unspecified acute noninfective otitis externa, right ear (principal); J45.909 Unspecified asthma, uncomplicated; F12.10 Cannabis abuse, uncomplicated; Z79.899 Other long term (current) drug therapy; Z79.1 Long term (current) use of non-steroidal anti-inflammatories (NSAID)
CPT/HCPCS: 99283

== ENCOUNTER 2022-09-30 20:09 | Emergency (ER) | payer MEDICAID ==
[~2022-09-30] VITALS: Ht 182.9 cm; Wt 79.1 kg
[2022-09-30 20:24] VITALS: BP 129/87
[2022-09-30 21:31] LABS: CLARITY,URINE TURBID (Clear); COLOR,URINE YELLOW (Yellow); GLUCOSE, URINE NEGATIVE (Neg); KETONES,URINE NEGATIVE (Neg); LEUKOCYTE ESTERASE ,URINE SMALL (Neg); NITRITES, URINE NEGATIVE (Neg); OCCULT BLOOD,URINE TRACE-INTACT (Neg); PROTEIN,URINE 30 mg/dl (Neg); UROBILINOGEN,URINE 0.2 E.U/dL (0.2-1.0)
[2022-09-30 21:37] LABS: UA COLLECTION TYPE NON-SPECIFIED
[2022-09-30 21:38] LABS: BACTERIA,URINE 1+ /HPF (Neg); SQUAMOUS EPITHELIAL CELL,UR FEW /LPF (FEW); WBC,URINE TNTC /HPF (0-4)
[2022-09-30 21:39] LABS: CAL OXALATE CRYSTALS FEW /HPF (NEGATIVE); RBC,URINE 20-50 /HPF (0-2)
[2022-09-30 21:40] LABS: WBC CLUMPS,URINE MANY /HPF (NEGATIVE)
[2022-09-30] MEDS ORDERED: CefTRIAXone 500MG IM Kit w/LIDOcaine IM ONE (23:00)
[2022-09-30] MEDS ORDERED: DOXY-135 PO (23:01)
[2022-09-30] MEDS ORDERED: CIPR-20 PO (23:01)
== END 2022-09-30 23:38 | disposition home or self-care (01) ==
LOC: ER 20:10
DX: N39.0 Urinary tract infection, site not specified (principal); J45.909 Unspecified asthma, uncomplicated; F12.90 Cannabis use, unspecified, uncomplicated; Z72.89 Other problems related to lifestyle; Z79.899 Other long term (current) drug therapy
CPT/HCPCS: 81001; 87088; 96372; 99283; J0696

== ENCOUNTER 2024-01-08 00:27 | Emergency (ER) | payer MEDICAID ==
[~2024-01-08] VITALS: Ht 182.9 cm; Wt 72.7 kg
[2024-01-08] MEDS: HYDROcodone/acetaminophen 5mg/325mg tablet PO ONE (00:54)
[2024-01-08] MEDS ORDERED: HYDR-3965 PO (01:18)
[2024-01-08] MEDS: ketorolac trometh 15mg/ml vial 15 MG/ML ML IM ONE (01:25)
[2024-01-08 01:35] VITALS: BP 142/60; PULSE 89; RESP 14; TEMP 98.6; O2SAT 98
== END 2024-01-08 01:41 | disposition home or self-care (01) ==
LOC: ER 00:28
DX: S42.021A Displaced fracture of shaft of right clavicle, initial encounter for closed fracture (principal); J45.909 Unspecified asthma, uncomplicated; F12.90 Cannabis use, unspecified, uncomplicated; Z79.899 Other long term (current) drug therapy; W22.8XXA Striking against or struck by other objects, initial encounter; Y93.89 Activity, other specified; Y92.89 Other specified places as the place of occurrence of the external cause; Y99.8 Other external cause status
CPT/HCPCS: 73000; 96372; 99283; J1885; A4565

== ENCOUNTER 2024-01-21 02:23 | Emergency (ER) | payer MEDICAID ==
[~2024-01-21] VITALS: Ht 182.9 cm; Wt 80.0 kg
[~2024-01-21 02:23] MED LIST changes: +HYDR-3965 PO
[2024-01-21 02:30] VITALS: TEMP 98.2
[2024-01-21] MEDS: methylPREDNISolone sod succ 125mg/2ml vial IV ONE (03:13)
[2024-01-21 03:16] LABS: EOSINOPHILS # (AUTO) 0.6 X10'3 (0-0.9); MONOCYTES # (AUTO) 0.7 X10'3 (0-0.9)
[2024-01-21 03:18] LABS: BASOPHILS % (AUTO) 0.4 % (0-1); EOSINOPHILS % (AUTO) 8.7 % (0-6); HEMATOCRIT 38.3 % (42.0-52.0); HEMOGLOBIN 12.7 g/dl (14.0-17.9); LYMPHOCYTES # (AUTO) 0.7 X10'3 (1.1-4.8); LYMPHOCYTES % (AUTO) 9.8 % (21-51); MEAN PLATELET VOLUME 7.1 FL (7.4-10.4); NEUTROPHILS % (AUTO) 71.1 % (42-75); PLATELET COUNT 417 X10'3 (140-440); RED BLOOD COUNT 4.08 X10'6 (4.70-6.10); RED CELL DISTRIBUTION WIDTH 13.8 % (11.5-14.5); WHITE BLOOD COUNT 7.1 X10'3 (4.5-11.0)
[2024-01-21] MEDS: ipratropium/albuterol 3ml nebule NEB ONE (03:25)
[2024-01-21 03:26] VITALS: PULSE 98; O2SAT 94
[2024-01-21 03:34] VITALS: PULSE 96; RESP 20; O2SAT 96
[2024-01-21 03:38] LABS: ALBUMIN 3.4 G/DL (3.4-5.0); ANION GAP 10 (8-16); BLOOD UREA NITROGEN 15 MG/DL (7-18); BUN/CREATININE RATIO 11.3 (10.0-20.0); CALCIUM 9.5 MG/DL (8.5-10.1); CHLORIDE 100 MMOL/L (99-107); CREATININE 1.33 MG/DL (0.60-1.10); GLUCOSE 86 MG/DL (70-104); PRO BRAIN NATRIURETIC PEPTIDE 38 PG/ML (0-125); SODIUM 138 MMOL/L (135-145); TOTAL CARBON DIOXIDE 27.9 MMOL/L (24-32); eCRCL 75 ML/MIN; eGFR 69 ML/MIN
[2024-01-21] MEDS: albuterol 2.5 MG/3 ML nebule CONTNEB PRN (04:11)
[2024-01-21 04:12] VITALS: PULSE 98; RESP 20; O2SAT 99
[2024-01-21] MEDS: levoFLOXACIN-Levaquin 500mg/D5 100 ML IV ONE (04:13)
[2024-01-21] MEDS ORDERED: ALBU18HF2 IH (04:54)
[2024-01-21] MEDS ORDERED: BENZ-38 PO (04:54)
[2024-01-21] MEDS ORDERED: LEVO-65 PO (04:54)
[2024-01-21 05:16] VITALS: BP 139/73; PULSE 95; RESP 25; O2SAT 98
== END 2024-01-21 05:13 | disposition home or self-care (01) ==
LOC: ER 02:24
DX: J16.8 Pneumonia due to other specified infectious organisms (principal); J45.909 Unspecified asthma, uncomplicated; F12.90 Cannabis use, unspecified, uncomplicated; Z72.89 Other problems related to lifestyle; Z79.899 Other long term (current) drug therapy; Z20.822 Contact with and (suspected) exposure to COVID-19
CPT/HCPCS: 71045; 80048; 83880; 84145; 84484; 85025; 87811; 93005; 94640; 96365; 96375; 99285; J1956; J2919; 94760; A7015

== ENCOUNTER 2024-03-20 09:45 | Emergency (ER) | payer OTHER, MEDICAID ==
[~2024-03-20] VITALS: Ht 182.9 cm; Wt 67.0 kg
[~2024-03-20 09:45] MED LIST changes: +ALBU18HF2 IH; -HYDR-3965 PO
[2024-03-20 09:59] VITALS: BP 130/79; PULSE 93; RESP 18; TEMP 97.6; O2SAT 98
[2024-03-20] MEDS ORDERED: IBUP-1986 PO (12:45)
[2024-03-20] MEDS ORDERED: ACET-1025 PO (12:45)
== END 2024-03-20 12:59 | disposition home or self-care (01) ==
LOC: ER 09:46
DX: M54.59 Other low back pain (principal); J45.909 Unspecified asthma, uncomplicated; F12.90 Cannabis use, unspecified, uncomplicated; Z72.89 Other problems related to lifestyle; Z79.899 Other long term (current) drug therapy; V99.XXXA Unspecified transport accident, initial encounter; Y93.89 Activity, other specified; Y92.89 Other specified places as the place of occurrence of the external cause; Y99.8 Other external cause status
CPT/HCPCS: 71046; 72100; 73030; 99284

== ENCOUNTER 2025-04-27 19:00 | Emergency (ER) | payer MEDICAID, OTHER ==
[~2025-04-27 19:00] MED LIST changes: +IBUP-1986 PO
[2025-04-28] MEDS ORDERED: SULF-16 PO (15:51)
== END 2025-04-27 20:39 | disposition left against medical advice (07) ==
LOC: ER 19:01
DX: T63.301A Toxic effect of unspecified spider venom, accidental (unintentional), initial encounter (principal); Y92.89 Other specified places as the place of occurrence of the external cause; Z53.21 Procedure and treatment not carried out due to patient leaving prior to being seen by health care provider

== ENCOUNTER 2025-04-28 13:52 | Emergency (ER) | payer MEDICAID ==
[~2025-04-28] VITALS: Ht 182.9 cm; Wt 72.3 kg
[2025-04-28 13:56] VITALS: TEMP 97.5
--- NOTE | 2025-04-28 14:00 | Physician Documentation ---
History of Present Illness ~ Chief Complaint: Bite-insect Stated Complaint: SPIDER BITE Time Seen by MD: 14:22 Primary Medical Doctor: NONE HPI 50-year-old male presents to the ED with a complaint of a insect bite on the posterior aspect of his left buttocks any fevers reports history of methamphetamine use current patient is currently tachycardic, no acute distress. Day of Onset: Apr 28, 2025 Tetanus within 5 years?: Yes Medication Reconciliation Allergies: Coded Allergies: No Known Allergies (Unverified , 04/28/25) Scheduled Albuterol Sulfate (Ventolin Hfa), 2 PUFFS IH 5XD Cyclobenzaprine* (Cyclobenzaprine*), 1 TAB PO Q8H Ibuprofen (Ibuprofen), 1 TAB PO Q8H Sulfamethoxazole/Trimethoprim (Septra Ds Tab), 1 TAB PO Q12H Miscellaneous Medications Home Med List (No Home Medications), (Reported) Past Medical History Past Medical History: Asthma, Bronchitis, Pneumonia, Cellulitis, *INFECTIOUS DZ* Past Surgical History: noncontributory Patient History: "natural causes" FATHER, , Age: 68 FH: HTN (hypertension) MOTHER Alcohol Use: Occasionally Drug Use: marijuana Lives with: Family Lives In: Home Occupation: employed Review of Systems All Other Systems at this time: Reviewed and Negative ROS As stated above in the HPI, otherwise all systems are reviewed and negative. Physical Exam Vital Signs: Temperature: 97.5, Source: Temporal, Heart Rate: 110, Respiratory Rate: 16, BP: 144/89, Pulse Oximetry: 98, Weight: 72.300 Oxygen Flow Rate: 0 Physical Exam General: Alert, no apparent distress. Extremities: Normal range of motion, no deformity. Neurologic: Oriented x4. Psychiatric: Normal mood and affect. Skin: 2-1/2 cm indurated wound in the left buttocks no current drainage Procedures I & D Procedure : Anesthesia: Lidocaine w/ Epi Blade Size: 11 Prep/Supplies: betadine prep Incision: pus drained Tolerated Procedure Well?: yes, no complications Procedure Note Patient tolerated procedure well moderate drainage was noted is needed as the infection was mostly cutaneous. Did subcutaneous D loculation with the hemostats without much purulent discharge Progress Results/Orders Results/Orders Orders - STERLING CATALAN NP Laceration/I&D Tray Set Up (04/28/25 ) Completed Orders - HOSSEIN,STERLING H ANGLE BENDER Lidocaine 1% W/Epi 1:100,000 (Xylocaine (04/28/25 14:55) Ceftriaxone Im Kit W/Lidocaine (Rocephin (04/28/25 15:45) Medications Received in ER Medications (Trade) Dose Ordered Sig/Adryan Route PRN Reason Start Time Stop Time Status Last Admin Dose Admin (Xylocaine 1%-EPI 1:100,000) 30 ml ONCE ONCE SQ 04/28/25 14:55 04/28/25 14:56 DC 04/28/25 15:27 30 ML Vital Signs 04/28/25 13:56 Temp 97.5 Pulse 110 Resp 16 B/P (MAP) 144/89 Pulse Ox 98 O2 Flow Rate 0 Medical Decision Making Additional information obtaine: old records Findings Patient an IM injection in his Rocephin while in the ED and sent him home with oral antibiotic. Suspect this may be a MRSA infection secondary to the patient's scratching him self. He is on his of SIRS vitals with normal limits outside of minor tachycardia which I suspect is secondary to methamphetamine use Differential Dx:Considerations: Include: Abrasion, Allergic reaction, Anaphylaxis, Cellulitis, Contusion, Fracture, Hematoma, Insect envenomation, Laceration, Neurovascular injury, Punture wound, Retained foreign body, Urticaria, Other Departure Disposition: 01 HOME / SELF CARE / HOMELESS Impression: Primary Impression: Cellulitis Additional Impression: Abscess Condition: Stable Discharge Instructions: Abscess, Care After Referrals: NO PRIMARY CARE PROVIDER (PCP) Prescriptions Sulfamethoxazole/Trimethoprim (Septra Ds Tab) 800 Mg/160 Mg Tablet 1 TAB PO Q12H for 10 Days, #20 TAB Prov: STERLING CATALAN NP 04/28/25 Education Educated: Patient Educated regarding: diagnosis Signature Scribe Signature: rf Attestation: Scribed for Sterling Catalan Mess Cook by Sterling Ge NP . 04/28/25 15:49 STERLING CATALAN NP Apr 28, 2025 14:00
[2025-04-28] MEDS: LIDOcaine 1% W/epiNEPHrine 1:100,000 20ml vial SQ ONE (15:27)
[2025-04-28] MEDS ORDERED: SULF-16 PO (15:51)
[2025-04-28] MEDS: CefTRIAXone 1000mg IM Kit (w/lidocaine diluent) IM ONE (16:07)
[2025-04-28 16:20] VITALS: BP 129/74; PULSE 64; RESP 18; O2SAT 98
== END 2025-04-28 16:25 | disposition home or self-care (01) ==
LOC: ER 13:53
DX: L03.317 Cellulitis of buttock (principal); L02.31 Cutaneous abscess of buttock; F12.90 Cannabis use, unspecified, uncomplicated; Z79.899 Other long term (current) drug therapy; Z72.89 Other problems related to lifestyle
CPT/HCPCS: 10060; 96372; 99283; A6266; J0696; J3490; A6449